=== PATIENT | female | born 1970 | race African-American/Black ===

== ENCOUNTER 2016-08-09 11:31 | Emergency (ER) | payer MEDICARE, OTHER ==
[2016-08-09 12:03] LABS: ASCORBIC ACID (UR NOT ORDER) NEG (NEG); BILIRUBIN, URINE NEGATIVE (NEG); ER URINALYSIS TAT 0 Hrs 12 Mins; KETONE, URINE NEGATIVE (NEG); LEUKOCYTE ESTERASE(NOT OR MOD (NEG); NITRITE (URINE) NEG (NEG)
[2016-08-09 12:04] LABS: WBC (NOT ORDERED) (RFLEX) > 182 (0-5)
== END 2016-08-09 12:43 | disposition home or self-care (01) ==
LOC: ER 11:31
PROVIDERS: Physician Assistant Medical
DX: N39.0 Urinary tract infection, site not specified (principal); I10 Essential (primary) hypertension; E11.9 Type 2 diabetes mellitus without complications; Z90.710 Acquired absence of both cervix and uterus
CPT/HCPCS: 81001; 87077; 87086; 87186; 99283; A9270-GY

== ENCOUNTER 2016-08-29 14:12 | Emergency (ER) | payer MEDICARE, OTHER | END 2016-08-29 14:20 | disposition home or self-care (01) | LOC: ER 14:12 | DX: J06.9 Acute upper respiratory infection, unspecified (principal); I10 Essential (primary) hypertension; E11.9 Type 2 diabetes mellitus without complications | CPT/HCPCS: 71020; 93005; 96372; 99283; J2800 ==

== ENCOUNTER 2016-08-31 19:17 | Emergency (ER) | payer MEDICARE, OTHER | END 2016-08-31 21:04 | disposition home or self-care (01) | LOC: ER 19:17 | DX: M25.511 Pain in right shoulder (principal); E11.9 Type 2 diabetes mellitus without complications | CPT/HCPCS: 73030-RT; 73090-RT; 96372; 99283; J1170; J2405 ==